=== PATIENT | female | born 1955 | race Caucasian/White ===

== ENCOUNTER 2021-12-12 11:19 | Emergency (ER) | payer OTHER ==
[2021-12-12 11:25] VITALS: BP 132/91; RESP 18; TEMP 98
[2021-12-12] MEDS ORDERED: KETOROLAC 15 MG/ML 1 ML VIAL IM STA (11:53)
--- NOTE | 2021-12-12 12:01 | ED ---
General Adult HPI - General Chief complaint: Extremity Injury, Upper Stated complaint: lt wrist injury Time Seen by Provider: 12/12/21 11:45 Source: patient, family, RN notes reviewed, old records reviewed Mode of arrival: ambulatory Limitations: no limitations - History of Present Illness Initial comments: Well-appearing 66-year-old female that presents to the emergency room with complaint of left wrist pain. Patient states that she slipped and fell on an outstretched arm last night around 3 AM and she has had increased pain and swelling since. Difficulty moving her wrist. She denies any other injuries. No loss of consciousness. -: hour(s) (8) Location: left, upper extremity (wrist) Radiation: non-radiation Severity scale (1-10): 8 Quality: aching, constant Consistency: constant Improves with: immobilization Worsens with: movement Associated Symptoms: denies other symptoms Treatments Prior to Arrival: none - Related Data Previous Rx's Medication Instructions Recorded Ibuprofen [Motrin] 600 mg PO Q8HR PRN #20 tab 12/12/21 traMADol HCl [Ultram] 50 mg PO Q6H PRN #20 tab 12/12/21 Allergies Allergy/AdvReac Type Severity Reaction Status Date / Time codeine AdvReac Nausea & Verified 12/12/21 11:22 Vomiting Sulfa (Sulfonamide AdvReac Nausea & Verified 12/12/21 11:22 Antibiotics) Vomiting Review of Systems ROS Statement: Those systems with pertinent positive or pertinent negative responses have been documented in the HPI. ROS Other: All systems not noted in ROS Statement are negative. Past Medical History Past Medical History: No Reported History History of Any Multi-Drug Resistant Organisms: None Reported Past Surgical History: Section Additional Past Surgical History / Comment(s): eye Past Psychological History: No Psychological Hx Reported Smoking Status: Current every day smoker Past Alcohol Use History: Occasional General Exam Limitations: no limitations General appearance: alert, in no apparent distress Head exam: Present: atraumatic Neck exam: Present: full ROM. Absent: tenderness, meningismus Respiratory exam: Absent: respiratory distress, accessory muscle use Cardiovascular Exam: Present: tachycardia Left Shoulder Exam: Absent: tenderness Upper Arm exam: Absent: tenderness Elbow exam: Present: normal inspection, full ROM. Absent: tenderness, swelling, ecchymosis, erythema, effusion Forearm Wrist exam: Absent: tenderness, swelling, ecchymosis, deformity Hand Wrist exam: Present: tenderness, swelling, ecchymosis, deformity. Absent: full ROM, abrasion, laceration, dislocation, erythema Neuro motor exam: Present: fingers 2-5 abduction intact. Absent: wrist extension intact Neurosensory exam: Present: ulnar nerve intact, median nerve intact, other (Patient unable to tolerate wrist flexion and extension due to pain) Vascular: Present: normal capillary refill, radial pulse. Absent: vascular compromise Back exam: Absent: tenderness Neurological exam: Present: alert, oriented X3 Psychiatric exam: Present: normal affect, normal mood Skin exam: Present: warm, dry, normal color. Absent: cyanosis, diaphoretic Course Vital Signs 12/12/21 12/12/21 11:22 13:25 Temperature 98 F Pulse Rate 110 H 88 Respiratory 18 Rate Blood Pressure 132/91 O2 Sat by Pulse 97 97 Oximetry Medical Decision Making - Medical Decision Making X-ray shows comminuted fracture of the distal radius with extension into the intra-articular surface approximately 30 posterior angulation. Case was discussed with Dr. Rodriguez and a hematoma block was provided and a reduction performed. Patient has good sensation, and neurovascularly intact prior to and postreduction. She was placed in a short arm splint and directed to follow up with orthopedics on Tuesday. Rest, ice, elevate at home. Return to the emergency room with any new or concerning symptoms including increased pain, pallor or numbness and tingling. Patient is agreeable to this plan of care. Disposition Clinical Impression: Distal radius fracture, left Disposition: HOME SELF-CARE Condition: Good Instructions (If sedation given, give patient instructions): Wrist Fracture in Adults (ED) Additional Instructions: Rest, ice, elevate and wear Justin wrap and splint until seen by orthopedics. Call orthopedic office on Tuesday to make an appointment. Return to the emergency room with any new or concerning symptoms including numbness, tingling or increased pain. Take the Motrin as prescribed for inflammation. Prescriptions: Ibuprofen [Motrin] 600 mg PO Q8HR PRN #20 tab PRN Reason: Pain traMADol HCl [Ultram] 50 mg PO Q6H PRN #20 tab PRN Reason: Pain Is patient prescribed a controlled substance at d/c from ED?: No Referrals: None,Stated [Primary Care Provider] - 1-2 days Jarek Rodriguez MD [STAFF PHYSICIAN] - 1-2 days
--- NOTE | 2021-12-12 12:09 | XR ---
EXAMINATION TYPE: XR wrist complete LT DATE OF EXAM: 12/12/2021 COMPARISON: None HISTORY: Pain TECHNIQUE: 4 view left wrist FINDINGS: There is a comminuted fracture of the distal radius. There is avulsion of the ulnar styloid. This may have smooth cortical margins and this may be old. There is some impaction of the distal radius of the distal fracture fragments. There is approximately 30 degree posterior angulation of the distal radial fracture. Diffuse overlying soft tissue swelling is present. Comminuted fracture is intra-articular extension into the distal radius. IMPRESSION: 1. Comminuted fracture distal radius with extension into the intra-articular surface. There is appro ximately 30 degree posterior angulation of the distal fracture fragments. 2. Ulnar styloid avulsion may be old.
[2021-12-12] MEDS ORDERED: LIDOCAINE 1% INJ 10MG/ML (5 ML VIAL-PF) SQ ONE (12:48)
[2021-12-12] MEDS ORDERED: traMADol 50 MG TAB PO STA (13:17)
[2021-12-12 13:25] VITALS: PULSE 88
--- NOTE | 2021-12-12 13:55 | XR ---
EXAMINATION TYPE: XR wrist complete LT DATE OF EXAM: 12/12/2021 COMPARISON: Earlier exam HISTORY: Fracture post reduction TECHNIQUE: Three-view left wrist FINDINGS: Comminuted fracture of the distal radius is again evident. Avulsion of the ulnar styloid is evident. Images are obtained through a fiberglass cast. There is improvement of the fracture alignment and positioning. Other is some dorsal angulation remai malena of the distal radius. Soft tissue swelling is present. IMPRESSION: 1. Status post partial reduction of the comminuted distal radial fracture. 2. Ulnar styloid avulsion noted.
== END 2021-12-12 13:40 | disposition home or self-care (01) ==
LOC: EC 11:19
DX: S52.502A Unspecified fracture of the lower end of left radius, initial encounter for closed fracture (principal); F17.200 Nicotine dependence, unspecified, uncomplicated; W01.0XXA Fall on same level from slipping, tripping and stumbling without subsequent striking against object, initial encounter
CPT/HCPCS: 73110; 25605; 99284; 96372; J2001; J1885

== ENCOUNTER 2023-02-16 10:25 | Emergency (ER) | payer OTHER ==
[2023-02-16 10:38] VITALS: RESP 18
[2023-02-16] MEDS ORDERED: KETOROLAC 15 MG/ML 1 ML VIAL IM STA (10:43)
[2023-02-16] MEDS ORDERED: HYDROmorphone 0.5 MG/0.5 ML SYRINGE IM STA (10:43)
--- NOTE | 2023-02-16 11:05 | ED ---
Fall HPI - General Chief Complaint: Fall Stated Complaint: Fall Time Seen by Provider: 02/16/23 10:27 Source: patient, EMS, RN notes reviewed Mode of arrival: EMS Limitations: no limitations - History of Present Illness Initial Comments: This is a 67-year-old female who presents to the emergency department for a fall. States that she tripped over her [id number] cat and fell down the basement stairs. She fell at 1:30 this morning, but was not found until around 6:30-7 AM. However, her [id number] did drive her home, and when she arrived home, her brother called EMS. Denies hitting her head or sustaining any loss of consciousness. She is not on any blood thinners. Currently complaining of pain to the majority of the left arm, right hand, and left knee. She does have some pain in the mid back as well. Denies any fevers, chills, sore throat, cough, dyspnea, chest pain, palpitations, abdominal pain, nausea, vomiting, diarrhea, or headaches. MD Complaint: fall - Related Data Previous Rx's Medication Instructions Recorded Ibuprofen [Motrin] 600 mg PO Q8HR PRN #20 tab 12/12/21 traMADol HCl [Ultram] 50 mg PO Q6H PRN #20 tab 12/12/21 HYDROcodone/APAP 10-325MG [[place] 1 tab PO Q6HR PRN 3 Days #12 tab 02/16/23 10-325] Ketorolac [Toradol] 10 mg PO Q6HR PRN #12 tab 02/16/23 Ondansetron Odt [Zofran Odt] 4 mg PO Q8HR PRN #15 tab 02/16/23 Allergies Allergy/AdvReac Type Severity Reaction Status Date / Time codeine AdvReac Nausea & Verified 12/12/21 11:22 Vomiting Sulfa (Sulfonamide AdvReac Nausea & Verified 12/12/21 11:22 Antibiotics) Vomiting Review of Systems ROS Statement: Those systems with pertinent positive or pertinent negative responses have been documented in the HPI. ROS Other: All systems not noted in ROS Statement are negative. Past Medical History Past Medical History: No Reported History History of Any Multi-Drug Resistant Organisms: None Reported Past Surgical History: Section Additional Past Surgical History / Comment(s): eye Past Psychological History: No Psychological Hx Reported Smoking Status: Current every day smoker Past Alcohol Use History: Occasional Past Drug Use History: None Reported General Exam Limitations: no limitations General appearance: alert, in no apparent distress Head exam: Present: atraumatic, normocephalic, normal inspection Respiratory exam: Present: normal lung sounds bilaterally. Absent: respiratory distress, wheezes, rales, rhonchi, stridor Cardiovascular Exam: Present: regular rate, normal rhythm, normal heart sounds. Absent: systolic murmur, diastolic murmur, rubs, gallop, clicks Extremities exam: Present: other (Tenderness to palpation over the left shoulder and clavicle. 2+ radial pulses. Ecchymosis and swelling to the dorsal aspect of the right hand. Tenderness to palpation over the left patella. 2+ DP and PT pulses.) Neurological exam: Present: alert, oriented X3, CN II-XII intact Psychiatric exam: Present: normal affect, normal mood Skin exam: Present: warm, dry Course Vital Signs 02/16/23 02/16/23 02/16/23 10:36 11:53 12:43 Pulse Rate 91 80 79 Respiratory 18 18 18 Rate Blood Pressure 119/83 137/88 136/79 O2 Sat by Pulse 95 98 95 Oximetry Medical Decision Making - Medical Decision Making This is a 67-year-old female who presents to the emergency department for a fall. Was pt. sent in by a medical professional or institution? @ -No Did you speak to anyone other than the patient for history? @ -No Did you review nursing and triage notes? @ -Yes, and I agree, it is accurate with regards to the patient's symptoms. Were old charts reviewed? @ -No Differential Diagnosis? @ -Differential Shoulder Injury: Fracture, dislocation, contusion, rotator cuff injury, AC joint separation, sprain, this is not meant to be an all-inclusive list. EKG interpreted by me (3pts min.)? @ -Not obtained X-rays interpreted by me (1pt min.)? @ -X-ray of the left shoulder, humerus, and elbow obtained. My interpretation identifies a left distal clavicle fracture. X-ray of the right hand, thoracic spine, and left knee obtained as well. My interpretation identifies no acute fractures or dislocations in these areas. CT interpreted by me (1pt min.)? @ -Not obtained U/S interpreted by me (1pt. min.)? @ -Not obtained What testing was considered but not performed? (CT, X-rays, U/S, labs)? Why? @ -None What meds were considered but not given? Why? @ -None Did you discuss the management of the patient with other professionals? @ -No Did you reconcile home meds? @ -No Was smoking cessation discussed for >3mins.? @ -No Was critical care preformed (if so, how long)? @ -No Were there social determinants of health that impacted care today? How? (Home lessness, low income, unemployed, alcoholism, drug addiction, transportation, low edu. Level, literacy, decrease access to med. care, penitentiary, rehab)? @ -No Was there de-escalation of care discussed even if they declined? (Discuss DNR or withdrawal of care, Hospice)? @ -No What co-morbidities impacted this encounter? (DM, HTN, Smoking, COPD, CAD, Cancer, CVA, Hep., AIDS, mental health diagnosis, sleep apnea, morbid obesity)? @ -None Was patient admitted / discharged? @ -Discharged. Lab work obtained revealing hyponatremia and elevated CK. X- rays of the left shoulder, humerus and elbow obtained revealing a distal left clavicle fracture. They advised that this is age indeterminant, however this is where the patient has tenderness and there does appear to be a deformity to this area, suggesting an acute fracture. The left elbow has a joint effusion and an occult fracture cannot be ruled out. There are also 2 acute left rib fractures to the fourth and fifth ribs. Patient educated on the need to take several deep breaths each day to reduce the risk of developing a secondary pneumonia. X-rays of the right hand, thoracic spine, and left knee obtained as well revealing no acute process aside from soft tissue swelling to the right hand. Findings disc ussed with the patient. Advised that blood work is suggestive of a rhabdomyolysis, and I offered admission for rehydration and orthopedic evaluation of fractures. However, patient declined admission and requested discharge home. Prescription for Toradol and [place] provided with dosing instructions reviewed. Patient is instructed to take the Toradol with Tylenol if needed and avoid any other gorm-dfa-mpdnatc anti-inflammatories such as ibuprofen with the Toradol. Also advised that the [place] is sedating and she should avoid driving or operating machinery when taking this. Her left arm was put in a sling and she is instructed to ice the affected areas for 15-20 minutes every 2-3 hours. Information for orthopedic follow-up provided. She is instructed to contact them today for a follow up appointment. She is also instructed to drink lots of fluids. Undiagnosed new problem with uncertain prognosis? @ -None Drug Therapy requiring intensive monitoring for toxicity (Heparin, Nitro, Insulin, Cardizem)? @ -None Were any procedures done? @ -None Diagnosis/symptom? @ -Fall, left clavicle fracture, elevated CK Acute, or Chronic, or Acute on Chronic? @ -Acute Uncomplicated (without systemic symptoms) or Complicated (systemic symptoms)? @ -Uncomplicated Side effects of treatment? @ -None Exacerbation, Progression, or Severe Exacerbation] @ -Not applicable Poses a threat to life or bodily function? @ -Yes, this will impact her ability to use the left arm. Return precautions reviewed in depth, the patient is instructed to return to the emergency department with any new, worsening, or concerning symptoms. Patient verbalized understanding. This case was discussed in detail with the attending ED physician, Dr. Arevalo. Presentation, findings, and treatment plan discussed in detail as well. - Lab Data Result diagrams: 02/16/23 10:44 02/16/23 10:44 Lab Results 02/16/23 02/16/23 Range/Units 10:44 10:44 WBC 6.3 (3.8-10.6) k/uL RBC 4.53 (3.80-5.40) m/uL Hgb 12.1 (11.4-16.0) gm/dL Hct 36.0 (34.0-46.0) % MCV 79.5 L (80.0-100.0) fL MCH 26.7 (25.0-35.0) pg MCHC 33.6 (31.0-37.0) g/dL RDW 14.5 (11.5-15.5) % Plt Count 200 (150-450) k/uL MPV 7.6 Neutrophils % 84 % Lymphocytes % 9 % Monocytes % 5 % Eosinophils % 0 % Basophils % 0 % Neutrophils # 5.3 (1.3-7.7) k/uL Lymphocytes # 0.6 L (1.0-4.8) k/uL Monocytes # 0.3 (0-1.0) k/uL Eosinophils # 0.0 (0-0.7) k/uL Basophils # 0.0 (0-0.2) k/uL Sodium 130 L (137-145) mmol/L Potassium 3.7 (3.5-5.1) mmol/L Chloride 96 L (98-107) mmol/L Carbon Dioxide 21 L (22-30) mmol/L Anion Gap 13 mmol/L BUN 7 (7-17) mg/dL Creatinine 0.46 L (0.52-1.04) mg/dL Est GFR (CKD-EPI)AfAm >90 (>60 ml/min/1.73 sqM) Est GFR (CKD-EPI)NonAf >90 (>60 ml/min/1.73 sqM) Glucose 106 H (74-99) mg/dL Calcium 8.6 (8.4-10.2) mg/dL Total Bilirubin 0.8 (0.2-1.3) mg/dL AST 40 H (14-36) U/L ALT 22 (4-34) U/L Alkaline Phosphatase 89 (38-126) U/L Creatine Kinase 741 H (30-135) U/L Total Protein 7.3 (6.3-8.2) g/dL Albumin 4.4 (3.5-5.0) g/dL - Radiology Data Radiology results: report reviewed, image reviewed Disposition Clinical Impression: Closed left clavicular fracture, Fall, Elevated CK Disposition: HOME SELF-CARE Instructions (If sedation given, give patient instructions): Clavicle Fracture (ED) Additional Instructions: Return to the emergency department with any new, worsening, or concerning symptoms. Alternate with the Toradol and Tylenol for pain relief. Do not take the Toradol with any other wdur-fen-lsnrato anti-inflammatories such as ibuprofen. Take the [place] sparingly when your pain is the most severe. I did send in Zofran to help with any nausea that may be associated with this. Contact orthopedics as listed below as soon as you get home for a follow-up appointment regarding these fractures. You are very dehydrated and you need to make sure that you drink lots of water when you get home. You should also apply ice to the painful areas for 15-20 minutes every 2-3 hours. Follow up with your primary care provider in 1-2 days. Prescriptions: HYDROcodone/APAP 10-325MG [[place] 10-325] 1 tab PO Q6HR PRN 3 Days #12 tab PRN Reason: Pain Ketorolac [Toradol] 10 mg PO Q6HR PRN #12 tab PRN Reason: Pain Ondansetron Odt [Zofran Odt] 4 mg PO Q8HR PRN #15 tab PRN Reason: Nausea And Vomiting Is patient prescribed a controlled substance at d/c from ED?: Yes When asked, does pt state using other controlled substances?: No If prescribed controlled substance>3 days was MAPS reviewed?: No Referrals: None,Stated [Primary Care Provider] - 1-2 days Nick Costa MD [Medical Doctor] - 1-2 days
[2023-02-16 11:18] LABS: ALT 22 U/L (4-34); AST 40 U/L (14-36); African American GFR (CKD) >90 (>60 ml/min/1.73 sqM); Albumin 4.4 g/dL (3.5-5.0); Alkaline Phosphatase 89 U/L (38-126); Anion Gap 13 mmol/L; Blood Urea Nitrogen 7 mg/dL (7-17); Calcium 8.6 mg/dL (8.4-10.2); Carbon Dioxide 21 mmol/L (22-30); Chloride 96 mmol/L (98-107); Creatine Kinase 741 U/L (30-135); Glucose 106 mg/dL (74-99); Non-African American GFR(CKD) >90 (>60 ml/min/1.73 sqM); Potassium 3.7 mmol/L (3.5-5.1); Sodium 130 mmol/L (137-145); Total Bilirubin 0.8 mg/dL (0.2-1.3); Total Protein 7.3 g/dL (6.3-8.2)
[2023-02-16] MEDS ORDERED: SODIUM CHLORIDE 0.9% 1,000 ML IV STA (11:19)
[2023-02-16 11:24] LABS: Basophils % (A) 0 %; Eosinophils % (A) 0 %; HGB 12.1 gm/dL (11.4-16.0); Lymphocytes # (A) 0.6 k/uL (1.0-4.8); Lymphocytes % (A) 9 %; MCH 26.7 pg (25.0-35.0); MCHC 33.6 g/dL (31.0-37.0); MCV 79.5 fL (80.0-100.0); Mean Platelet Volume 7.6; Monocytes # (A) 0.3 k/uL (0-1.0); Monocytes % (A) 5 %; Neutrophils # (A) 5.3 k/uL (1.3-7.7); Neutrophils % (A) 84 %; Platelet Count 200 k/uL (150-450); RBC 4.53 m/uL (3.80-5.40); RDW 14.5 % (11.5-15.5); WBC 6.3 k/uL (3.8-10.6)
--- NOTE | 2023-02-16 11:40 | XR ---
EXAMINATION TYPE: XR elbow limited LT DATE OF EXAM: 02/16/2023 COMPARISON: NONE HISTORY: Pain FINDINGS: Two views of the elbow demonstrate pathologic joint effusions. The osseous structures are intact. T here is no acute fracture or dislocation. Diffuse osteopenia. IMPRESSION: 1. Pathologic joint effusion. Suspect occult fracture. Correlate clinically.
--- NOTE | 2023-02-16 11:41 | XR ---
EXAMINATION TYPE: XR knee complete LT DATE OF EXAM: 02/16/2023 COMPARISON: 04/26/2011 HISTORY: Pain TECHNIQUE: Three views are submitted. FINDINGS: Diffuse osteopenia with mild narrowing of the tricompartment joint space. Spurring along the upper ma rgin of the patella. Osseous structures are intact. No acute fracture seen. IMPRESSION: 1. No acute fracture or dislocation.
--- NOTE | 2023-02-16 11:42 | XR ---
EXAMINATION TYPE: XR hand complete RT DATE OF EXAM: 02/16/2023 11:31 AM INDICATION: Patient age:Female; 67 years old; Reason for study: Pain after fall; [facility]. COMPARISON: None TECHNIQUE: Frontal, lateral and oblique views of the right hand were obtained. FINDINGS: Normal alignment of the visualized joints. No acute osseous pathology is identified. Mild soft tissue swelling of the proximal first digit. IMPRESSION: 1. No acute osseous pathology. 2. Mild soft tissue swelling of the proximal first digit.
--- NOTE | 2023-02-16 11:45 | XR ---
EXAMINATION TYPE: XR shoulder complete LT DATE OF EXAM: 02/16/2023 COMPARISON: NONE HISTORY: Pain TECHNIQUE: Three views are submitted. FINDINGS: There is a displaced comminuted fracture of the distal left clavicle of indeterminate age. Diffuse os teopenia. Remote rib cage deformity seen. Lung pal clear. There is an acute displaced fracture inv olving the anterolateral margins of the left fourth and fifth ribs. IMPRESSION: 1. Comminuted displaced fracture distal left clavicle indeterminate age correlate with point tenderne ss. There appear to be remote rib fractures as well as at least 2 new acute fractures involving the later al margin of the left fourth and fifth ribs.
--- NOTE | 2023-02-16 11:45 | XR ---
EXAMINATION TYPE: XR humerus LT DATE OF EXAM: 02/16/2023 COMPARISON: NONE HISTORY: Pain TECHNIQUE: 2 views submitted. FINDINGS: There is a comminuted displaced fracture of the left clavicle. Chronic rib cage fractures are seen. V isualized portion of the humerus is intact with diffuse osteopenia. There is a pathologic joint effus ion at the level of the elbow. Suspect new acute fractures left fourth and fifth rib laterally. IMPRESSION: 1. Displaced comminuted fracture of the distal left clavicle. 2. Chronic rib cage deformities. Suspect minimally displaced fractures left fourth and fifth ribs lat erally. 3. Pathologic joint effusion elbow suspect occult fracture.
[2023-02-16] MEDS ORDERED: HYDROmorphone 1 MG/ML 1 ML SYRINGE IVP STA (12:24)
[2023-02-16 12:44] VITALS: BP 136/79; PULSE 79
== END 2023-02-16 13:14 | disposition home or self-care (01) ==
LOC: EC 10:25
DX: S42.032A Displaced fracture of lateral end of left clavicle, initial encounter for closed fracture (principal); M95.4 Acquired deformity of chest and rib; F17.200 Nicotine dependence, unspecified, uncomplicated; Z88.1 Allergy status to other antibiotic agents; Z88.2 Allergy status to sulfonamides; Z88.5 Allergy status to narcotic agent; W01.0XXA Fall on same level from slipping, tripping and stumbling without subsequent striking against object, initial encounter
CPT/HCPCS: 36415; 80053; 82550; 85025; 73030; 73060; 73070; 73130; 73562; 99285; 96374; 96372 ×2; 96361; J1170 ×2; J1885

== ENCOUNTER → 2023-02-28 | Outpatient (CLI) | payer OTHER ==
--- NOTE | 2023-02-28 10:17 | CT ---
EXAMINATION TYPE: CT shoulder LT wo con DATE OF EXAM: 02/28/2023 COMPARISON: 02/16/2023 HISTORY: Left shoulder pain post fall February 16, 2023. CT DLP: 221.[address] of the left shoulder with reconstruction imaging. TECHNIQUE: Unenhanced CT of the left shoulder was performed with bone and soft tissue window settings submitted in the axial coronal and sagittal planes. At a separate workstation [id number] TR imaging was ob tained. FINDINGS: Markedly comminuted distal left clavicular fracture noted with the greatest degree of displ acement noted at 1 cm. The AC joint is intact. The scapula is intact including the glenoid. The proxi mal humerus is intact. There is fracture of left rib #3. IMPRESSION: 1. Comminuted and displaced distal left clavicular fracture with the AC joint being intact. 2. Fracture left rib #3.
== END | disposition home or self-care (01) ==
LOC: RADCTMAIN 09:15
PROVIDERS: ATTEND Orthopaedic Surgery
DX: S42.032A Displaced fracture of lateral end of left clavicle, initial encounter for closed fracture (principal); S22.32XA Fracture of one rib, left side, initial encounter for closed fracture

== ENCOUNTER 2024-03-24 14:30 | Inpatient (IN) | payer OTHER ==
[~2024-03-24 14:30] MED LIST: HYDROmorphone 0.5 MG/0.5 ML SYRINGE ONE
[2024-03-24] MEDS ORDERED: HYDROmorphone 1 MG/ML 1 ML SYRINGE ONE ×2 (19:48→23:06)
[2024-03-24] MEDS ORDERED: HEPARIN SODIUM,PORCINE 5,000 UNIT/ML 1 ML VIAL ONE (21:12)
[2024-03-24] MEDS ORDERED: ENOXAPARIN 40 MG/0.4 ML SYRINGE SQ ONE (23:59)
[2024-03-24] MEDS ORDERED: SODIUM CHLORIDE 0.9% 1,000 ML BAG ONE (23:59)
[2024-03-25] MEDS ORDERED: HYDROmorphone 1 MG/ML 1 ML SYRINGE ONE ×5 (02:55→23:32)
[2024-03-25] MEDS ORDERED: SUCCINYLCHOLINE CHLORIDE 200 MG/10 ML VIAL IV ONE (08:10)
[2024-03-25] MEDS ORDERED: WATER FOR INJECTION, STERILE 10 ML VIAL IV ONE (08:10)
[2024-03-25] MEDS ORDERED: PHENYLEPHRINE 10 MG/ML VIAL ONE (08:10)
[2024-03-25] MEDS ORDERED: ROCURONIUM 10 MG/ML (5 ML VIAL) IV ONE (08:10)
[2024-03-25] MEDS ORDERED: ADENOSINE 3 MG/ML 2 ML VIAL IVP ONE (08:10)
[2024-03-25] MEDS ORDERED: MIDAZOLAM 2 MG/2 ML VIAL ONE (08:10)
[2024-03-25] MEDS ORDERED: TRANEXAMIC 1,000 MG/100ML-NACL PREMIX BAG ONE (08:10)
[2024-03-25] MEDS ORDERED: ceFAZolin 1 GM/50 ML BAG (PMX) ONE (08:10)
[2024-03-25] MEDS ORDERED: PROPOFOL 10 MG/ML 20 ML VIAL IV ONE (08:10)
[2024-03-25] MEDS ORDERED: NEOSTIGMINE 1 MG/ML 10 ML VIAL ONE (08:10)
[2024-03-25] MEDS ORDERED: ePHEDrine 50 MG/ML 1 ML VIAL ONE (08:10)
[2024-03-25] MEDS ORDERED: fentaNYL (PF) 50 MCG/ML 2 ML AMP ONE (08:10)
[2024-03-25] MEDS ORDERED: GLYCOPYRROLATE 0.2 MG/ML 2 ML VIAL ONE (08:10)
[2024-03-25] MEDS ORDERED: ENOXAPARIN 40 MG/0.4 ML SYRINGE SQ ONE (15:09)
[2024-03-26] MEDS ORDERED: HYDROmorphone 1 MG/ML 1 ML SYRINGE ONE ×4 (03:52→19:40)
[2024-03-26] MEDS ORDERED: ENOXAPARIN 40 MG/0.4 ML SYRINGE SQ ONE (08:30)
[2024-03-26] MEDS ORDERED: MAGNESIUM SULFATE-D5W PMX 100 ML IVPB ONE (13:19)
[2024-03-26] MEDS ORDERED: POTASSIUM CHLORIDE ER 20 MEQ TAB.ER PO ONE (13:19)
[2024-03-26] MEDS ORDERED: SODIUM CHLORIDE 0.9% 1,000 ML BAG ONE (23:59)
[2024-03-26] MEDS ORDERED: MAGNESIUM SULFATE-D5W PMX 1 GM/100 ML BAG IVPB ONE (23:59)
[2024-03-27] MEDS ORDERED: HYDROmorphone 1 MG/ML 1 ML SYRINGE ONE ×3 (00:45→07:35)
[2024-03-27] MEDS ORDERED: ENOXAPARIN 40 MG/0.4 ML SYRINGE SQ ONE (07:35)
[2024-03-27] MEDS ORDERED: TAMSULOSIN 0.4 MG CAP.ER.24H PO ONE (13:44)
[2024-03-27] MEDS ORDERED: HYDROcodone/APAP 5-325MG 1 EACH TAB ONE ×2 (16:49→21:43)
[2024-03-27] MEDS ORDERED: SODIUM CHLORIDE 0.9% 1,000 ML BAG ONE (23:59)
[2024-03-28] MEDS ORDERED: HYDROcodone/APAP 5-325MG 1 EACH TAB ONE (08:24)
[2024-03-28] MEDS ORDERED: TAMSULOSIN 0.4 MG CAP.ER.24H PO ONE (08:24)
[2024-03-28] MEDS ORDERED: ENOXAPARIN 40 MG/0.4 ML SYRINGE SQ ONE (08:24)
[2024-03-28] MEDS ORDERED: SODIUM CHLORIDE 0.9% 1,000 ML BAG ONE (18:00)
--- NOTE | 2024-04-20 12:41 | XR ---
EXAMINATION TYPE: XR femur RT DATE OF EXAM: 03/24/2024 INDICATION: Patient age:Female; 68 years old; Reason for study: PAIN FROM FALL; COMPARISON: Right hip radiograph 03/24/2024 TECHNIQUE: The right femur was examined in AP and lateral projections. FINDINGS: No dislocation. There is linear lucency through the intertrochanteric region of the right proximal femur. No soft tissue swelling. No radiopaque foreign bodies. IMPRESSION: Acute intertrochanteric fracture of the right proximal femur suggested. Consider CT for further evalu ation.
--- NOTE | 2024-04-30 10:06 | XR ---
Site ID [facility] Patient Violeta Villalpando ID [id number] EXAMINATION TYPE: XR Hip RT and AP Pelvis DATE OF EXAM: 03/24/2024 2:59 PM CLINICAL INDICATION: Pain from fall COMPARISON: THIS EXAM WAS READ DURING PACS DOWNTIME, NO PRIORS AVAILABLE. TECHNIQUE: XR Hip RT and AP Pelvis; hip was examined in the frontal and lateral projections and a AP pelvis. FINDINGS: Lucency through the intertrochanteric region of the right proximal femur suspicious for non displaced fracture. The left hip is intact. The bony pelvis appears otherwise intact. IMPRESSION: Acute intertrochanteric fracture of the right hip suggested. Consider evaluation with CT imaging for fracture characterization.
--- NOTE | 2024-04-30 10:07 | XR ---
Site ID [facility] Violeta Morrison ID [id number] [id number] EXAMINATION TYPE: XR shoulder complete RT DATE OF EXAM: 03/24/2024 3:03 PM CLINICAL INDICATION: Pain from fall COMPARISON: THIS EXAM WAS READ DURING PACS DOWNTIME, NO PRIORS AVAILABLE. TECHNIQUE: XR shoulder complete RT; examined in AP, internally rotated and scapular Y projections. FINDINGS/IMPRESSION: 1. Acute right proximal humerus surgical neck fracture with displacement and impaction. Remainder of the osseous structures are intact. 2. Visualized portions of the chest are within normal limits.
== END 2024-03-28 18:09 | DRG 308 ==
LOC: 4SSUR 14:30
PROVIDERS: ADMIT Orthopaedic Surgery Hand Surgery; ATTEND Orthopaedic Surgery Hand Surgery
PROC: 2W3AX1Z Immobilization of Right Upper Arm using Splint (ICD-10-PCS; 2024-03-24)
PROC: 0QS636Z Reposition Right Upper Femur with Intramedullary Internal Fixation Device, Percutaneous Approach (ICD-10-PCS; principal; 2024-03-25)
DX: S72.141A Displaced intertrochanteric fracture of right femur, initial encounter for closed fracture (principal); S42.201A Unspecified fracture of upper end of right humerus, initial encounter for closed fracture; W01.0XXA Fall on same level from slipping, tripping and stumbling without subsequent striking against object, initial encounter; D62 Acute posthemorrhagic anemia; I47.10 Supraventricular tachycardia, unspecified; E16.2 Hypoglycemia, unspecified; R33.9 Retention of urine, unspecified; S09.90XA Unspecified injury of head, initial encounter; R26.0 Ataxic gait; F17.210 Nicotine dependence, cigarettes, uncomplicated; Z88.5 Allergy status to narcotic agent; Y92.010 Kitchen of single-family (private) house as the place of occurrence of the external cause; Z88.2 Allergy status to sulfonamides; Z88.6 Allergy status to analgesic agent
CPT/HCPCS: 73502; 96374; 96376; 99285